=== PATIENT | male | born 1945 | race Asian ===

== ENCOUNTER 2016-06-14 09:58 | Inpatient (IN) | payer OTHER ==
[~2016-06-14] VITALS: Ht 170.2 cm; Wt 69.9 kg
[~2016-06-14 09:58] MED LIST: ADVAIR DISKUS 11 DSK IH; ASPIRIN81 M1 PO; ATORVASTATIN CA20 MG PO; HYDROCHLOROTHIA25 MG PO; LOSARTAN POTASS25 MG PO; MEDROL DOSEPAK4 MG PO; PHENERGAN25 MG PO; PROAIR HFA0.09 MG/Ac IH; SINGULAIR10 MG PO; TENORMIN100 MG PO; TENORMIN50 M1 PO; ZESTRIL20 MG PO
[2016-06-14 10:03] VITALS: BP 157/68
[2016-06-14] MEDS ORDERED: SINGULAIR10 MG PO (10:08)
--- NOTE | 2016-06-14 10:21 | NUR ---
REPORT TO DR. HANSEN RESULT OF URINE DIPSTICK
--- NOTE | 2016-06-14 10:23 | NUR ---
PATIENT PRESENTS TO ED WITH 71/M BIB HERE FOR ABNORMAL LABS SODIUM 121, RECEIVED CALL FROM PMD THIS AM SENT HERE. HX COPD, HTN. DENIES N/V/D; SKIN IS PINK/WARM/DRY; AAOX4 WITH EVEN AND STEADY GAIT; LUNGS CLEAR BL; HR EVEN AND REGULAR; PT DENIES ANY FEVER, CP, SOB, OR COUGH AT THIS TIME; PATIENT STATES PAIN OF 0/10 AT THIS TIME; VSS; PATIENT POSITIONED FOR COMFORT; HOB ELEVATED; BEDRAILS UP X2; BED DOWN. ER MD MADE AWARE OF PT STATUS.
--- NOTE | 2016-06-14 10:24 | NUR ---
Patient being evaluated by physician at bedside.
[2016-06-14] MEDS ORDERED: NACL 0.9% 1,000 ML IV ONE (10:40)
[2016-06-14] MEDS ORDERED: NACL 0.9% 1,000 ML IV SCH (12:03)
[2016-06-14] MEDS ORDERED: ONDANSETRON 4 MG/2 ML VIAL IVP PRN (12:05)
[2016-06-14] MEDS ORDERED: LORazepam 2 MG/ML VIAL IVP PRN (12:05)
[2016-06-14] MEDS ORDERED: HYDROcodone/APAP 5/325 MG 1 TAB TAB PO PRN (12:05)
[2016-06-14] MEDS ORDERED: FUROSEMIDE 40 MG/4 ML VIAL IVP SCH (12:18)
--- NOTE | 2016-06-14 12:30 | NUR ---
Patient will be admitted to care of DR. GONZALES. [facility] Will go to [facility]B Belongings list completed. Report to TANNA RN
--- NOTE | 2016-06-14 12:45 | NUR ---
PATIENT ADMITTED FROM ER , COMING VIA WC . PATIENT AWAKE, ALERT ,ORIENTED (T/4) . DENIES PAIN AT THIS TIME , NO SOB NOTED. WITH IV FLUIDS INFUSING WELL. SKIN INTACT . PATIENT CONTINENT B/B , BRP . UNIT ORIENTATION DONE. WILL CONTINUE MONITORING.
[2016-06-14] MEDS ORDERED: NON-FORMULARY ITEM (Albuterol Sulfate Hfa* (Proair Hfa*) 2 PUFF) IH SCH (13:50)
--- NOTE | 2016-06-14 14:00 | NUR ---
RAFIA/SEQ DEVISES APPLIED .
[2016-06-14] MEDS ORDERED: ALBUTEROL 0.083% 2.5 MG/3 ML NEBU INH PRN (14:35)
[2016-06-14 16:00] VITALS: BP 141/68
--- NOTE | 2016-06-14 19:29 | NUR ---
REPORT GIVEN AT BEDSIDE TO GISELLA TAYLOR FOR CONTINUITY OF CARE. PATIENT IN STABLE CONDITION.
--- NOTE | 2016-06-14 19:30 | NUR ---
RECEIVED PT AWAKE ON BED, DENIES ANY PAIN, NO SOB NOTED, VITAL SIGNS STABLE, IVF INFUSING WELL, POC DISCUSSED, CALL LIGHT WITHIN REACH.
[2016-06-14 20:00] VITALS: BP 146/67
--- NOTE | 2016-06-14 22:00 | NUR ---
PT AMBULATORY TO BR WITH STEADY GAIT, VOIDING FREELY, MONITORED CLOSELY.
[2016-06-15] VITALS (7 sets, daily range): BP systolic 129–160; BP diastolic 61–79
--- NOTE | 2016-06-15 | NUR ---
PT AWAKE, VITAL SIGNS STABLE, SB IN TELE, ASYMPTOMATIC, DENIES ANY PAIN, CONTINUE TO MONITOR CLOSELY.
--- NOTE | 2016-06-15 02:15 | NUR ---
PT REQUESTING IF HE CAN GET SOME ATIVAN, WITH ORDER FOR ATIVAN IVP, GIVEN PRN WITH 1 MG PER PT REQUEST SINCE PER PT 2MG IS TOO STRONG FOR HIM, MONITORED CLOSELY.
--- NOTE | 2016-06-15 04:00 | NUR ---
SLEEPING, EASILY AROUSABLE, VITAL SIGNS STABLE, NO DISTRESS NOTED, MONITORED CLOSELY.
[2016-06-15] MEDS: PANTOPRAZOLE 40 MG TABEC PO SCH (06:06)
--- NOTE | 2016-06-15 06:17 | NUR ---
PT SLEEPING, EASILY AROUSABLE, DENIES ANY PAIN, DUE PO MEDICATION TAKEN, IVF INFUSING WELL, MONITORED CLOSELY.
[2016-06-15] MEDS ORDERED: MAGNESIUM OXIDE 400 MG TAB PO SCH (07:00)
--- NOTE | 2016-06-15 07:15 | NUR ---
PT AWAKE, NO DISTRESS NOTED, REPORT GIVEN TO ADA RN FOR CONTINUITY OF CARE.
[2016-06-15] MEDS ORDERED: ATORVASTATIN 20 MG TAB PO SCH ×3 (09:00→21:00)
[2016-06-15] MEDS ORDERED: MAG SULF 2000 MG/WATER PREMIX 50 ML IV SCH (09:00)
[2016-06-15] MEDS ORDERED: LOSARTAN 25 MG TAB PO SCH ×2 (09:00)
[2016-06-15] MEDS: ATENOLOL 50 MG TAB PO SCH (09:00)
[2016-06-15] MEDS ORDERED: ATENOLOL 50 MG TAB PO SCH (09:00)
--- NOTE | 2016-06-15 11:00 | NUR ---
PATIENT HAS BEEN SCREENED AND CATEGORIZED MODERATE NUTRITION RISK. PATIENT WILL BE SEEN WITHIN 3-5 DAYS OF ADMISSION. 06/17/16-06/19/[address]
[2016-06-15] MEDS ORDERED: FUROSEMIDE 40 MG/4 ML VIAL IVP SCH (13:17)
[2016-06-15] MEDS: ASPIRIN 81 MG TAB.CHEW PO SCH (17:00)
[2016-06-15] MEDS: MONTELUKAST SODIUM 10 MG TAB PO SCH (17:01)
[2016-06-15] MEDS: LOSARTAN 25 MG TAB PO SCH ×2 (17:01→21:00)
[2016-06-15] MEDS: NACL 0.9% 1,000 ML IV SCH ×2 (17:36→20:25)
--- NOTE | 2016-06-15 19:20 | NUR ---
REPORT GIVEN AT BEDSIDE TO GISELLA BAPTISTE FOR CONTINUITY OF CARE .
--- NOTE | 2016-06-15 19:27 | NUR ---
RECEIVED FROM AM RN IN BED AWAKE AND ALERT. NO SOB. CALL LIGHT WITH IN REACH. ABLE TO VERBALIZE NEEDS WELL. NO SOB. CARE PLANS DISCUSSED WITH PTS. TELEMETRY MONITORING.
--- NOTE | 2016-06-15 21:03 | NUR ---
REFUSED TO TAKE B/P MEDICATION RT TOOK IT AT 1700. AWAKE AND ALERT. ORIENTED X 4. ROM X 4. Addendum: 06/15/16 at 2108 by Emile Kent RN CHARTING ABOVE BY EMILE KENT RN. MEDICATION FOR 2100 GIVEN BY EMILE KENT RN.
--- NOTE | 2016-06-15 23:30 | NUR ---
PT. SLEEPING. NO SOB. WILL MONITOR. TELEMETRY MONITORING. CALL LIGHT WITH IN REACH.
[2016-06-16 00:44] VITALS: BP 134/65
--- NOTE | 2016-06-16 01:23 | NUR ---
SEEN PT. AMBULATE TO RESTROOM WITHOUT ASSIST. TELEMETRY MONITORING. ROM X 4. CLEAR SPEECH. CALL LIGHT WITH IN REACH.
[2016-06-16 04:00] VITALS: BP 149/76
[2016-06-16] MEDS: PANTOPRAZOLE 40 MG TABEC PO SCH (06:37)
--- NOTE | 2016-06-16 07:15 | NUR ---
RECEIVED PATIENT REPORT. PATIENT AWAKE, ALERT, ORIENTED AND AMBULATORY. NO S/S OF DISTRESS NOTED. PATIENT DENIES PAIN AT THIS TIME. IV TO THE RIGHT AC INTACT WITH IVF INFUSING WELL. PATIENT ON TELE MONITORING. BED LOWERED WITH CALL LIGHT WITHIN REACH. WILL CONTINUE TO MONITOR
--- NOTE | 2016-06-16 07:29 | NUR ---
ENDORSED TO THE NEXT RN FOR CONTINUITY OF CARE. AWAKE AND ALERT. NO SOB. VERBALIZES WELL. ORIENTED X 4. ROM X 4. NO PAIN COMPLAINTS THIS SHIFT. USES CALL LIGHT FOR HELP.
[2016-06-16 08:00] VITALS: BP 149/81
[2016-06-16] MEDS: NACL 0.9% 1,000 ML IV SCH (08:55)
[2016-06-16] MEDS: MONTELUKAST SODIUM 10 MG TAB PO SCH (09:11)
[2016-06-16] MEDS: LOSARTAN 25 MG TAB PO SCH (09:11)
[2016-06-16] MEDS: ATENOLOL 50 MG TAB PO SCH (09:11)
[2016-06-16] MEDS: ASPIRIN 81 MG TAB.CHEW PO SCH (09:11)
--- NOTE | 2016-06-16 09:30 | NUR ---
ADMINISTERED DUE MEDS. PATIENT TOLERATED WELL
[2016-06-16] MEDS ORDERED: LOSARTAN POTASS50 MG PO ×2 (10:50→11:15)
[2016-06-16] MEDS ORDERED: TENORMIN50 M1 PO (10:50)
--- NOTE | 2016-06-16 11:00 | NUR ---
PATIENT CALMLY RESTING IN BED. NO S/S OF DISTRESS NOTED
[2016-06-16 12:00] VITALS: BP 147/71
[2016-06-16] MEDS ORDERED: MAGNESIUM OXIDE 400 MG TAB PO SCH (12:00)
--- NOTE | 2016-06-16 13:55 | NUR ---
PATIENT DISCHARGED TO HOME. DISCHARGE INSTRUCTIONS AND DISCHARGE PRESCRIPTIONS GIVEN. PATIENT VERBALIZED UNDERSTANDING. IV LINE DISCONTINUED. TELE LEADS TAKEN OFF. PATIENT SIGNED ALL HIS DISCHARGE PAPERS. PATIENT LEFT WITH ALL HIS BELONGINGS AND DISCHARGE PAPERS. PATIENT LEFT IN STABLE CONDITION
== END 2016-06-16 13:55 | disposition home or self-care (01) | DRG 641 ==
LOC: MED 09:58 → UNDOADMIN 12:03 → MTU 12:03 → OBSVTOIN 06-15 12:54
PROVIDERS: ADMIT Family Medicine; ATTEND Family Medicine
DX: E87.1 Hypo-osmolality and hyponatremia (principal); I42.2 Other hypertrophic cardiomyopathy; J44.9 Chronic obstructive pulmonary disease, unspecified; I11.9 Hypertensive heart disease without heart failure; E83.42 Hypomagnesemia; K21.9 Gastro-esophageal reflux disease without esophagitis; Z87.891 Personal history of nicotine dependence; Z83.3 Family history of diabetes mellitus; Z80.8 Family history of malignant neoplasm of other organs or systems

== ENCOUNTER 2016-08-02 07:15 | Outpatient (CLI) | payer OTHER ==
[~2016-08-02 07:15] MED LIST changes: +LOSARTAN POTASS50 MG PO
== END 2016-08-02 19:33 | disposition home or self-care (01) ==
LOC: MLB 07:15
PROVIDERS: ATTEND Family Medicine
DX: E87.0 Hyperosmolality and hypernatremia (principal)

== ENCOUNTER 2016-11-08 07:30 | Outpatient (CLI) | payer OTHER ==
[~2016-11-08 07:30] MED LIST changes: -ADVAIR DISKUS 11 DSK IH; +ALBU-136 IH; +ASPI81CT89 PO; -ASPIRIN81 M1 PO; +ATEN50TA8 PO; +ATOR20TA40 PO; -ATORVASTATIN CA20 MG PO; +FLUT1DSK IH; -HYDROCHLOROTHIA25 MG PO; +LOSA50TA39 PO; -LOSARTAN POTASS25 MG PO; -LOSARTAN POTASS50 MG PO; -MEDROL DOSEPAK4 MG PO; +MONT10TA35 PO; +PHE25S PO; -PHENERGAN25 MG PO; -PROAIR HFA0.09 MG/Ac IH; -SINGULAIR10 MG PO; -TENORMIN100 MG PO; -TENORMIN50 M1 PO; -ZESTRIL20 MG PO
== END 2016-11-08 20:15 | disposition home or self-care (01) ==
LOC: MLB 07:30
PROVIDERS: ATTEND Family Medicine
DX: E78.5 Hyperlipidemia, unspecified (principal)
CPT/HCPCS: 36415

== ENCOUNTER 2017-03-05 08:09 | Outpatient (CLI) | payer OTHER ==
[2017-03-05 08:34] LABS: BASOPHILS # (AUTO) 0.3 K/uL (0.00-0.22); BASOPHILS % (AUTO) 3.8 % (0.0-2.0); EOSINOPHILS # (AUTO) 0.5 K/uL (0-0.4); EOSINOPHILS % (AUTO) 6.6 % (0.0-4.0); HEMATOCRIT 41.4 % (36-52); HEMOGLOBIN 13.6 g/dL (12.0-18.0); LYMPHOCYTES # (AUTO) 2.7 K/uL (2.0-11.5); LYMPHOCYTES % (AUTO) 34.7 % (20.5-51.1); MEAN CORPUSCULAR HEMOGLOBIN 28 pg (27-31); MEAN CORPUSCULAR HGB CONC 33 g/dL (33-37); MEAN CORPUSCULAR VOLUME 84 fL (80-94); MONOCYTES # (AUTO) 0.5 K/uL (0.8-1.0); MONOCYTES % (AUTO) 6.1 % (1.7-9.3); NEUTROPHILS # (AUTO) 3.7 K/uL (1.8-7.7); NEUTROPHILS % (AUTO) 48.8 % (42.2-75.2); PLATELET COUNT (AUTO) 417 K/uL (140-450); RED BLOOD CELL COUNT(AUTO) 4.91 MIL/uL (4.20-6.10); RED CELL DISTRIBUTION WIDTH 12.8 % (11.6-13.7); WHITE BLOOD COUNT (AUTO) 7.7 K/uL (4.8-10.8)
[2017-03-05 09:04] LABS: ALBUMIN 4.3 g/dL (3.4-5.0); ANION GAP 13.3 (8-16); CARBON DIOXIDE 28.9 mmol/L (21-32); CREATININE 1.1 mg/dL (0.7-1.3); POTASSIUM 4.2 mmol/L (3.5-5.1); TOTAL BILIRUBIN 0.4 mg/dL (0.0-1.0)
== END 2017-03-05 22:12 | disposition home or self-care (01) ==
LOC: MLB 08:09
PROVIDERS: ATTEND Family Medicine
DX: Z00.00 Encounter for general adult medical examination without abnormal findings (principal)
CPT/HCPCS: 36415; 80053; 85025

== ENCOUNTER 2017-04-02 07:52 | Outpatient (CLI) | payer OTHER ==
[2017-04-02 09:13] LABS: CHOL/HDL RATIO 2.8 (1-4.5)
== END 2017-04-02 17:32 | disposition home or self-care (01) ==
LOC: MLB 07:52
PROVIDERS: ATTEND Family Medicine
DX: E78.5 Hyperlipidemia, unspecified (principal)
CPT/HCPCS: 36415

== ENCOUNTER 2017-05-12 10:26 | Emergency (ER) | payer OTHER ==
[~2017-05-12] VITALS: Ht 167.6 cm; Wt 72.7 kg
[2017-05-12 10:31] VITALS: BP 142/64
--- NOTE | 2017-05-12 10:34 | NUR ---
Patient ambulated to bed 03.
--- NOTE | 2017-05-12 10:39 | NUR ---
Received ALOX4 with pt c/o sore throat and instructed by his to come in and get abx and tx pt did not want to change into hospital gown at this time.
[2017-05-12 10:58] VITALS: BP 122/72
--- NOTE | 2017-05-12 10:59 | NUR ---
Patient discharged with v/s stable. Written and verbal after care instructions given and explained. Patient alert, oriented and verbalized understanding of instructions. Ambulatory with steady gait. All questions addressed prior to discharge. ID band removed. Patient advised to follow up with PMD. Rx of Z-pack and Phenergan given. Patient educated on indication of medication including possible reaction and side effects. Opportunity to ask questions provided and answered.
== END 2017-05-12 10:59 | disposition home or self-care (01) ==
LOC: MED 10:26 → EEVIPCON 10:26 → MED 10:59
DX: J06.9 Acute upper respiratory infection, unspecified (principal); I10 Essential (primary) hypertension; Z79.899 Other long term (current) drug therapy; Z79.82 Long term (current) use of aspirin
CPT/HCPCS: 99283

== ENCOUNTER 2017-06-09 16:45 | Inpatient (IN) | payer OTHER ==
[~2017-06-09] VITALS: Ht 170.2 cm; Wt 73.5 kg
[2017-06-09 16:57] VITALS: BP 158/87
[2017-06-09] MEDS ORDERED: AMLO10TA PO (17:04)
[2017-06-09] MEDS ORDERED: ATOR40TA PO (17:04)
[2017-06-09] MEDS ORDERED: METO25TE2 PO (17:04)
[2017-06-09] MEDS ORDERED: MELA5TAB5 PO (17:04)
[2017-06-09] MEDS ORDERED: LOSA50TA39 PO (17:04)
[2017-06-09] MEDS ORDERED: OMEP20TC10 PO (17:04)
[2017-06-09] MEDS ORDERED: LORA-476 PO (17:04)
[2017-06-09] MEDS ORDERED: APR10 PO (17:04)
--- NOTE | 2017-06-09 17:45 | NUR ---
Patient to OF4. RN evaluating patient.
--- NOTE | 2017-06-09 17:54 | NUR ---
PT STATES "I THINK MY BRAIN IS BEING AFFECTED. I KEEP THINKING OF SOMETHING AND I KEEP THINKING AND THINKING OF IT AND CANNOT CHANGE IT." SINCE YESTERDAY DENIES HEARING VOICES OR SEEING THINGS; DENIES HURTING SELF OR OTHERS HX HTN, HIGH CHOLESTEROL, ANXIETY; DENIES N/V/D; SKIN IS PINK/WARM/DRY; AAOX4 WITH EVEN AND STEADY GAIT; LUNGS CLEAR BL; HR EVEN AND REGULAR; PT DENIES ANY FEVER, CP, SOB, OR COUGH AT THIS TIME; PATIENT STATES PAIN OF 0/10 AT THIS TIME; VSS; PATIENT POSITIONED FOR COMFORT; ER MD MADE AWARE OF PT STATUS.
--- NOTE | 2017-06-09 18:25 | NUR ---
ASSUMED CARE OF PT FROM OF4. PT AA&OX4 AT THIS TIME. PT STATES "FEELING ANXIOUS" SINCE YESTERDAY BECAUSE INCREASE IN BP; PT STATES " I COULD FEEL MY BLOOD PRESSURE RISING YESTERDAY"; PER , PT OUT OF ATIVAN AT THIS TIME; PT C/O NAUSEA, BUT STATES NO VOMITING OR DIARRHEA AT THIS TIME;ABDOMEN SOFT, NON-TENDER, ACTIVE BOWEL SOUNDS X 4 QUADRANTS; PT C/O CHEST PAIN EARLIER, BUT STATES " I DON'T HAVE CHEST PAIN ANYMORE, BUT HAD IT EARLIER"; BL LUNG SOUNDS CLEAR, RR EVEN/UNLABORED AT THIS TIME; SKIN IS WARM/DRY/INTACT; PT STATES "I'M STARTING TO FEEL MY RT FOOT GO NUMB", BUT NO LOSS OF SENSATION TO RT FOOT AT THIS TIME; RT CAP REFILL < 3 SECONDS, RT PEDAL PULSE PALPABLE, NO LOSS OF ROM TO RT FOOT AT THIS TIME. PT RESTING IN BED WITH HOB ELEVATED AND IN LOWEST POSITION; POSITIONED FOR COMFORT; ER MD MADE AWARE OF STATUS. WILL CONTINUE TO MONITOR.
--- NOTE | 2017-06-09 18:37 | NUR ---
ER MD DR. FERNÁNDEZ EVALUATING PT AT BEDSIDE.
[2017-06-09] MEDS ORDERED: ASPIRIN 81 MG TAB.CHEW PO ONE (18:40)
[2017-06-09] MEDS ORDERED: LORazepam 1 MG TAB PO ONE (18:45)
--- NOTE | 2017-06-09 18:52 | NUR ---
blood bank laboratory technician at bedside.
--- NOTE | 2017-06-09 18:53 | NUR ---
LAB AT BEDSIDE.
[2017-06-09 19:04] LABS: HEMATOCRIT 38.3 % (36-52); HEMOGLOBIN 12.7 g/dL (12.0-18.0); MEAN CORPUSCULAR HEMOGLOBIN 28 pg (27-31); MEAN CORPUSCULAR HGB CONC 33 g/dL (33-37); MEAN CORPUSCULAR VOLUME 84 fL (80-94); PLATELET COUNT (AUTO) 358 K/uL (140-450); RED BLOOD CELL COUNT(AUTO) 4.59 MIL/uL (4.20-6.10); RED CELL DISTRIBUTION WIDTH 12.5 % (11.6-13.7); WHITE BLOOD COUNT (AUTO) 9.4 K/uL (4.8-10.8)
--- NOTE | 2017-06-09 19:13 | NUR ---
PT IN BED, POSTIONED FOR COMFORT, WILL CONTINUE TO MONITOR.
[2017-06-09 19:15] LABS: ANION GAP 16.1 (8-16); CARBON DIOXIDE 23.3 mmol/L (21-32); CREATININE 0.9 mg/dL (0.7-1.3); POTASSIUM 3.4 mmol/L (3.5-5.1)
--- NOTE | 2017-06-09 19:15 | NUR ---
Pt report given to GISELLA SHERIFF. Transfer of care at this time.
--- NOTE | 2017-06-09 19:15 | NUR ---
Darcy de souza in ED - 06/09/17 at 1915 by TRENA Pt report given to []. Transfer of care at this time.
[2017-06-09 19:20] LABS: ALBUMIN 4.2 g/dL (3.4-5.0); TOTAL BILIRUBIN 0.6 mg/dL (0.0-1.0)
[2017-06-09] MEDS ORDERED: NACL 0.9% 1,000 ML IV ONE (19:25)
[2017-06-09 19:33] LABS: LYMPHOCYTES % (MANUAL) 35 % (20-46); MONOCYTES % (MANUAL) 8 % (5-12)
[2017-06-09] MEDS ORDERED: MORPHINE SULFATE 2 MG/ML SYR IVP ONE (19:45)
[2017-06-09] MEDS ORDERED: HYDROcodone/APAP 7.5/325 MG 1 TAB PO PRN (20:00)
[2017-06-09] MEDS ORDERED: DOCUSATE SODIUM 100 MG GELCAP PO PRN (20:00)
[2017-06-09] MEDS ORDERED: ACETAMINOPHEN 325 MG TAB PO PRN (20:00)
[2017-06-09] MEDS ORDERED: ONDANSETRON 4 MG/2 ML VIAL IM/IVP PRN (20:00)
--- NOTE | 2017-06-09 20:00 | NUR ---
RECEIVED FROM ER PER THEODORE AWAKE AND ALERT. NO SOB. PT. ACCOMPANIED BY . TELEMETRY MONITORING AND DX. OF HYPONATREMIA AND ANXIETY. CALL LIGHT WITH IN REACH AND PT. ORIENTED TO RAPID RESPONSE , ROOM AND CALL LIGHT USE. CARE PLANS FOR THE NIGHT DISCUSSED WITH HIM AND . ENCOURAGED TO CALL FOR ANY HELP HE MAY NEED.
[2017-06-09] MEDS: NACL 0.9% 1,000 ML IV SCH (20:04)
--- NOTE | 2017-06-09 20:19 | NUR ---
DR. Kyra BREEN EVALUATING PATIENT AT BEDSIDE
--- NOTE | 2017-06-09 20:54 | NUR ---
Patient will be admitted to care of [facility]. Admited to tele. Will go to room 125-b. Belongings list completed. Report to césar.
[2017-06-09 20:55] VITALS: BP 149/70
[2017-06-09] MEDS: SODIUM CHLORIDE 1 GM TAB PO SCH (21:00)
[2017-06-09] MEDS ORDERED: METO25TA PO (21:08)
[2017-06-09] MEDS: hydrALAZINE 10 MG TAB PO SCH (21:10)
[2017-06-09] MEDS: METOPROLOL 25 MG TAB PO SCH (21:10)
[2017-06-09 21:13] LABS: PROTHROMBIN TIME 10.4 secs (10.8-13.4)
[2017-06-09] MEDS ORDERED: NITROGLYCERIN 0.4 MG TAB SL PRN (21:15)
[2017-06-09 21:20] LABS: CHOL/HDL RATIO 2.9 (1-4.5); FREE T4 (FREE THYROXINE) 1.13 ng/dL (0.76-1.46); MAGNESIUM 1.8 mg/dL (1.8-2.4); PHOSPHORUS 3.5 mg/dL (2.5-4.9); THYROID STIMULATING HORMONE 0.42 uIU/mL (0.34-3.74)
[2017-06-09] MEDS ORDERED: MECLIZINE 25 MG TAB PO PRN (21:20)
[2017-06-09] MEDS ORDERED: ZOLPIDEM 5 MG TAB PO PRN (21:40)
[2017-06-09] MEDS ORDERED: LORazepam 1 MG TAB PO PRN (21:40)
--- NOTE | 2017-06-09 22:04 | NUR ---
PT. WHEELED OUT TO RADIOLOGY DEPT. FOR CT SCAN HEAD. AWAKE AND ALERT. ORIENTED X 4. CLEAR SPEECH. NO SOB.
[2017-06-09] MEDS ORDERED: POTASSIUM CHLORIDE 10 MEQ TABER PO SCH (22:15)
[2017-06-09] MEDS ORDERED: METOPROLOL 25 MG TAB PO SCH (22:30)
[2017-06-09] MEDS ORDERED: hydrALAZINE 10 MG TAB PO SCH (22:30)
[2017-06-09] MEDS ORDERED: PNEUMOCOCCAL VACCINE 23 MCG/0.5 ML VIAL IMVAC SCH (22:35)
[2017-06-09] MEDS ORDERED: SODIUM CHLORIDE 1 GM TAB PO SCH (22:40)
[2017-06-10] VITALS (19 sets, daily range): BP systolic 129–158; BP diastolic 62–79
--- NOTE | 2017-06-10 00:39 | NUR ---
US CAROTID BILATERAL DONE. PT. NO COMPLAINTS OF ANY CHEST PAIN DONE. PROVIDED WITH SANDWICH REQUESTED RT "I AM HUNGRY" . CALL LIGHT WITH IN REACH AT ALL TIMES.
--- NOTE | 2017-06-10 06:41 | NUR ---
SLEPT WELL THIS SHIFT. NO CHEST PAIN COMPLAINT DONE WITH MY SHIFT. CALL LIGHT WITH IN REACH. A/O X 4. ROM X 4. BILATERAL SEQUENTIALS IN PLACE.
[2017-06-10 07:05] LABS: HEMATOCRIT 39.9 % (36-52); HEMOGLOBIN 13.5 g/dL (12.0-18.0); MEAN CORPUSCULAR HEMOGLOBIN 28 pg (27-31); MEAN CORPUSCULAR HGB CONC 34 g/dL (33-37); MEAN CORPUSCULAR VOLUME 82 fL (80-94); PLATELET COUNT (AUTO) 366 K/uL (140-450); RED BLOOD CELL COUNT(AUTO) 4.87 MIL/uL (4.20-6.10); RED CELL DISTRIBUTION WIDTH 12.5 % (11.6-13.7)
--- NOTE | 2017-06-10 07:20 | NUR ---
RECEIVED REPORT FROM GLASS ETCHER NURSE. PATIENT SITTING IN BED WATCHING TV. NO DISTRESS NOTED. DENIES ANY PAIN. RESPIRATIONS EVEN, UNLABORED, ON ROOM AIR. AAOX4, CALM, COOPERATIVE, SKIN COLOR APPROPRIATE TO ETHNICITY, WARM TO TOUCH. LUNGS CTA ON ALL LOBES. IV SITE INTACT, PATENT AND INFUSING. AMBULATORY TO BATHROOM AND BACK WITH STEADY GAIT. ABDOMEN SOFT, NON-DISTENDED. REVIEWED PLAN OF CARE WITH PATIENT. PATIENT VERBALIZED UNDERSTANDING. SAFETY MEASURES IN PLACE, CALL LIGHT WITHIN REACH. WILL CONTINUE TO MONITOR.
[2017-06-10 07:30] LABS: ANION GAP 16.2 (8-16); CARBON DIOXIDE 22.8 mmol/L (21-32); CREATININE 0.8 mg/dL (0.7-1.3)
[2017-06-10 08:59] LABS: EOSINOPHILS % (MANUAL) 3 % (0-4); LYMPHOCYTES % (MANUAL) 44 % (20-46); MONOCYTES % (MANUAL) 5 % (5-12)
[2017-06-10] MEDS ORDERED: ESCITALOPRAM 20 MG TAB PO SCH (09:00)
--- NOTE | 2017-06-10 09:02 | NUR ---
PATIENT HAS BEEN SCREENED AND CATEGORIZED MODERATE NUTRITION RISK. PT WILL BE SEEN WITHIN 3-5 DAYS OF ADMISSION. 06/11/17-06/13/[address]
[2017-06-10] MEDS: PANTOPRAZOLE 40 MG TABEC PO SCH (09:36)
[2017-06-10] MEDS: ATORVASTATIN 20 MG TAB PO SCH (09:36)
[2017-06-10] MEDS: METOPROLOL 25 MG TAB PO SCH ×2 (09:36→21:01)
[2017-06-10] MEDS: LOSARTAN 50 MG TAB PO SCH ×2 (09:37→21:01)
[2017-06-10] MEDS: amLODIPine 5 MG TAB PO SCH (09:37)
[2017-06-10] MEDS: ECOTRIN 81 MG TABEC PO SCH (09:37)
[2017-06-10] MEDS: SERTRALINE 50 MG TAB PO SCH (09:38)
[2017-06-10] MEDS: hydrALAZINE 10 MG TAB PO SCH ×4 (09:38→21:01)
[2017-06-10] MEDS: SODIUM CHLORIDE 1 GM TAB PO SCH (09:38)
[2017-06-10] MEDS: NACL 0.9% 1,000 ML IV SCH ×3 (09:44→23:23)
--- NOTE | 2017-06-10 09:46 | NUR ---
DR. ROJO AT BEDSIDE REVIEWING PLAN OF CARE WITH PATIENT. NO DISTRESS NOTED. DENIES ANY PAIN. SCHEDULED MEDICATIONS DUE GIVEN. SAFETY MEASURES IN PLACE, CALL LIGHT WITHIN REACH. WILL CONTINUE TO MONITOR.
--- NOTE | 2017-06-10 11:30 | NUR ---
PATIENT SITTING IN BED WATCHING TV. NO DISTRESS NOTED. DENIES ANY PAIN. SAFETY MEASURES IN PLACE, CALL LIGHT WITHIN REACH. WILL CONTINUE TO MONITOR.
--- NOTE | 2017-06-10 13:40 | NUR ---
PATIENT SITTING IN BED WATCHING TV. NO DISTRESS NOTED. DENIES ANY PAIN. CONDITION UNCHANGED. SCHEDULED BP MEDICATION WITHHELD DUE TO DECREASED BP. SAFETY MEASURES IN PLACE, CALL LIGHT WITHIN REACH. WILL CONTINUE TO MONITOR.
--- NOTE | 2017-06-10 17:08 | NUR ---
PATIENT SITTING IN BED WATCHING TV. AT BEDSIDE. NO DISTRESS NOTED. DENIES ANY PAIN. SCHEDULED MEDICATIONS DUE GIVEN. SAFETY MEASURES IN PLACE, CALL LIGHT WITHIN REACH. WILL CONTINUE TO MONITOR.
--- NOTE | 2017-06-10 18:35 | NUR ---
PATIENT LYING DOWN IN BED SLEEPING, AROUSABLE BY VOICE. NO DISTRESS NOTED. DENIES ANY PAIN. SAFETY MEASURES IN PLACE, CALL LIGHT WITHIN REACH. WILL CONTINUE TO MONITOR.
--- NOTE | 2017-06-10 19:17 | NUR ---
GAVE REPORT TO MANAGER PHARMACY NURSE FOR CONTINUITY OF CARE. PATIENT IN STABLE CONDITION.
--- NOTE | 2017-06-10 19:35 | NUR ---
RECEIVED PT IN STABLE CONDITION FROM AM NURSE. AWAKE,ALERT AND ORIENTED X4. ON TELE MONITOR. NO C/O ANY DISCOMFORT NOR PAIN NOTED AT THIS TIME. PT STILL EATING DINNER. WITH IVF INFUSING WELL ON THE RT HAND #20. CLEAR AND PATENT. PLAN OF CARE DISCUSSED AND VERBALIZED UNDERSTANDING. BED ON LOW POSITION. CALL LIGHT PLACED WITHIN EASY REACH. DR. SINGH CAME AND SEEN PT. WILL CONTINUE TO MONITOR.
--- NOTE | 2017-06-10 21:01 | NUR ---
PT TOOK ALL NIGHT MEDS . TOLERATED WELL.
[2017-06-10] MEDS ORDERED: SODIUM CHLORIDE 1 GM TAB PO SCH (21:10)
--- NOTE | 2017-06-10 23:18 | NUR ---
PT C/O INSOMNIA. AMBIEN 5 MG PO GIVEN ORDERED. WILL CONTINUE TO MONITOR.
--- NOTE | 2017-06-11 01:00 | NUR ---
MADE ROUNDS. ASLEEP. WITH NO S/S OF ANY DISCOMFORT NOR PAIN NOTED.
--- NOTE | 2017-06-11 02:00 | NUR ---
MAD ROUNDS. PT IS ASLEEP. NO S/S OF ANY DISCOMFORT NOTED.
[2017-06-11 03:54] VITALS: BP 146/67
[2017-06-11 03:55] VITALS: BP 142/74
[2017-06-11 03:56] VITALS: BP 145/72
[2017-06-11 06:16] LABS: T4 (THYROXINE) 8.4 ug/dL (4.5-12.0)
[2017-06-11 06:22] LABS: BASOPHILS # (AUTO) 0.3 K/uL (0.00-0.22); BASOPHILS % (AUTO) 3.3 % (0.0-2.0); EOSINOPHILS # (AUTO) 0.2 K/uL (0-0.4); EOSINOPHILS % (AUTO) 1.8 % (0.0-4.0); HEMATOCRIT 40.1 % (36-52); HEMOGLOBIN 13.5 g/dL (12.0-18.0); LYMPHOCYTES # (AUTO) 2.8 K/uL (2.0-11.5); LYMPHOCYTES % (AUTO) 26.4 % (20.5-51.1); MEAN CORPUSCULAR HEMOGLOBIN 28 pg (27-31); MEAN CORPUSCULAR HGB CONC 34 g/dL (33-37); MEAN CORPUSCULAR VOLUME 84 fL (80-94); MONOCYTES # (AUTO) 1.2 K/uL (0.8-1.0); MONOCYTES % (AUTO) 11.9 % (1.7-9.3); NEUTROPHILS % (AUTO) 56.6 % (42.2-75.2); PLATELET COUNT (AUTO) 379 K/uL (140-450); RED CELL DISTRIBUTION WIDTH 12.5 % (11.6-13.7); WHITE BLOOD COUNT (AUTO) 10.5 K/uL (4.8-10.8)
--- NOTE | 2017-06-11 07:00 | NUR ---
NATI , JUST CALLED AND SAID NOT TO GIVE THE PNA VACCINE ANYMORE . HE WILL JUST GET IT [facility] . WILL ENDORSE TO AM NURSE.
--- NOTE | 2017-06-11 07:10 | NUR ---
BEDSIDE REPORT RECEIVED FROM NIGHTSHIFT NURSE AT BEDSIDE. PATIENT IS AWAKE AT THIS TIME. PATIENT DOES NOT COMPLAIN OF CHEST PAIN. PATIENT IS A&OX4. PATIENT IS IN STABLE CONDITION. CALL LIGHT IS WITHIN REACH. INSTRUCTED PATIENT TO CALL IF HE NEEDS HELP WITH ANYTHING.
--- NOTE | 2017-06-11 07:15 | NUR ---
ENDORSED PT IN STABLE CONDITION TO AM NURSE.
[2017-06-11 08:26] VITALS: BP 131/76
[2017-06-11 08:55] LABS: ANION GAP 13.9 (8-16); CARBON DIOXIDE 23.9 mmol/L (21-32); CREATININE 0.8 mg/dL (0.7-1.3); POTASSIUM 3.8 mmol/L (3.5-5.1)
[2017-06-11] MEDS ORDERED: ATI.5 PO (09:04)
[2017-06-11] MEDS ORDERED: SERT50TA PO ×2 (09:04→13:16)
[2017-06-11] MEDS ORDERED: ASPI81CT89 PO ×2 (09:07→13:27)
[2017-06-11] MEDS ORDERED: LORazepam 1 MG TAB PO SCH (09:27)
--- NOTE | 2017-06-11 09:50 | NUR ---
PATIENT IS AMBULATING AROUND THE UNIT. PATIENT SHOWS NO SIGNS OF RESPIRATORY DISTRESS OR FATIGUE. PATIENT OXYGEN SATURATION IS 95% AFTER WALKING.
[2017-06-11] MEDS: SERTRALINE 50 MG TAB PO SCH (10:06)
[2017-06-11] MEDS: LOSARTAN 50 MG TAB PO SCH (10:07)
[2017-06-11] MEDS: hydrALAZINE 10 MG TAB PO SCH ×2 (10:08→13:00)
[2017-06-11] MEDS: PANTOPRAZOLE 40 MG TABEC PO SCH (10:08)
[2017-06-11] MEDS: METOPROLOL 25 MG TAB PO SCH (10:09)
[2017-06-11] MEDS: amLODIPine 5 MG TAB PO SCH ×2 (10:09→11:50)
[2017-06-11] MEDS: ECOTRIN 81 MG TABEC PO SCH (10:09)
[2017-06-11] MEDS: ATORVASTATIN 20 MG TAB PO SCH (10:10)
--- NOTE | 2017-06-11 11:55 | NUR ---
PATIENT IS IN STABLE CONDITION. PATIENT COMPLAINS OF NO CHEST PAIN AT THIS TIME. PATIENT ABLE TO SIGN ALL DOCUMENTS REGARDING DISCHARGE INSTRUCTIONS. PATIENT INFORMED ON FOLLOW UP APPOINTMENT ON WEDNESDAY 06/14. PATIENT UNDERSTOOD ALL INSTRUCTIONS REGARDING PRESCRIPTIONS. PATIENT GATHERED ALL BELONGING AND LEFT THE UNIT VIA WHEELCHAIR.
[2017-06-11 12:00] VITALS: BP 152/71
[2017-06-11] MEDS ORDERED: AMLO10TA PO (13:16)
[2017-06-11] MEDS ORDERED: METO25TA PO (13:16)
[2017-06-11] MEDS ORDERED: OMEP20TC10 PO (13:16)
[2017-06-11] MEDS ORDERED: ATOR40TA PO (13:18)
[2017-06-11] MEDS ORDERED: APR10 PO (13:18)
[2017-06-11] MEDS ORDERED: LOSA50TA39 PO (13:18)
== END 2017-06-11 12:00 | disposition home or self-care (01) | DRG 640 ==
LOC: MED 16:45 → MMU 20:00
PROVIDERS: ADMIT Student in an Organized Health Care Education/Training Program; ATTEND Student in an Organized Health Care Education/Training Program
DX: E87.1 Hypo-osmolality and hyponatremia (principal); G93.41 Metabolic encephalopathy; I42.9 Cardiomyopathy, unspecified; J44.9 Chronic obstructive pulmonary disease, unspecified; I11.9 Hypertensive heart disease without heart failure; F41.9 Anxiety disorder, unspecified; E87.8 Other disorders of electrolyte and fluid balance, not elsewhere classified; K21.9 Gastro-esophageal reflux disease without esophagitis; E78.5 Hyperlipidemia, unspecified; E87.6 Hypokalemia; E89.0 Postprocedural hypothyroidism; F32.9 Major depressive disorder, single episode, unspecified; G47.9 Sleep disorder, unspecified; R73.9 Hyperglycemia, unspecified; R45.1 Restlessness and agitation; E78.00 Pure hypercholesterolemia, unspecified; Z82.49 Family history of ischemic heart disease and other diseases of the circulatory system; Z87.891 Personal history of nicotine dependence; Z83.3 Family history of diabetes mellitus; Z80.8 Family history of malignant neoplasm of other organs or systems
CPT/HCPCS: 36415; 70450; 71045; 80048; 80053; 82150; 83036; 83690; 83735; 83880; 84100; 84436; 84439; 84443; 84479; 84484; 85025; 85610; 85730; 87081; 93005; 93880; 96361; 96374; 99285; J2270; J7030; Q0092

== ENCOUNTER 2017-08-17 12:11 | Inpatient (IN) | payer OTHER ==
[~2017-08-17] VITALS: Ht 170.2 cm; Wt 71.7 kg
[~2017-08-17 12:11] MED LIST changes: -ALBU-136 IH; +AMLO10TA PO; +APR10 PO; -ATEN50TA8 PO; +ATI.5 PO; -ATOR20TA40 PO; +ATOR40TA PO; -FLUT1DSK IH; +MELA5TAB5 PO; +METO25TA PO; -MONT10TA35 PO; +OMEP20TC10 PO; -PHE25S PO; +SERT50TA PO
[2017-08-17 12:13] VITALS: BP 176/90
--- NOTE | 2017-08-17 12:18 | NUR ---
PT AMBULATED TO BED 2.
--- NOTE | 2017-08-17 12:20 | NUR ---
pt ambulated to rm 2 with steady gait
[2017-08-17] MEDS ORDERED: ASPIRIN 81 MG TAB.CHEW PO ONE (12:30)
--- NOTE | 2017-08-17 12:30 | NUR ---
72 YO M BIB self w/ c/o substernal chest pain that began at 0930 this morning. Pt reports that he was resting and didn't go for his walk today and that was why the chest pain began. Pt denies n/v and does not present w/ diaphoresis, but reports the pain extends down left arm. Pt reports numbness/tingling in his fingers of left hand. He reports that walking alleviates the pain. Pt reports that he is having generalized body weakness at this time Pt reports that he has been having "panic attacks" and reports feeling anxiety at this time. Pt requesting anti-anxiety medication. Pt A&O x 4. Denies any respiratory ditress or SOB. No s/s of acute respiratory distress noted at this time. CMS intact. Skin intact. ER MD Yeboah notified of pt complaint og chest pain accompanied by left arm pain, numbness, and tingling. Safety precautions in place. Pt needs met at this time. Will continue to monitor.
[2017-08-17 13:10] LABS: BASOPHILS # (AUTO) 0.6 K/uL (0.00-0.22); EOSINOPHILS # (AUTO) 0.1 K/uL (0-0.4); EOSINOPHILS % (AUTO) 0.5 % (0.0-4.0); HEMATOCRIT 39.3 % (36-52); HEMOGLOBIN 12.9 g/dL (12.0-18.0); LYMPHOCYTES # (AUTO) 1.5 K/uL (2.0-11.5); LYMPHOCYTES % (AUTO) 14.1 % (20.5-51.1); MEAN CORPUSCULAR HEMOGLOBIN 28 pg (27-31); MEAN CORPUSCULAR HGB CONC 33 g/dL (33-37); MEAN CORPUSCULAR VOLUME 84.9 fL (80-94); MONOCYTES % (AUTO) 9.2 % (1.7-9.3); NEUTROPHILS # (AUTO) 7.4 K/uL (1.8-7.7); NEUTROPHILS % (AUTO) 70.2 % (42.2-75.2); PLATELET COUNT (AUTO) 407 K/uL (140-450); RED BLOOD CELL COUNT(AUTO) 4.62 MIL/uL (4.20-6.10); RED CELL DISTRIBUTION WIDTH 13.4 % (11.6-13.7); WHITE BLOOD COUNT (AUTO) 10.6 K/uL (4.8-10.8)
[2017-08-17 13:18] LABS: ANION GAP 13.3 (8-16); CARBON DIOXIDE 28.6 mmol/L (21-32); CREATININE 0.9 mg/dL (0.7-1.3); POTASSIUM 3.9 mmol/L (3.5-5.1)
[2017-08-17 13:23] LABS: ALBUMIN 4.3 g/dL (3.4-5.0); TOTAL BILIRUBIN 0.5 mg/dL (0.0-1.0)
[2017-08-17] MEDS ORDERED: LORazepam 1 MG TAB PO ONE (13:40)
--- NOTE | 2017-08-17 14:07 | NUR ---
pt ambulated with steady gait from and to bathroom without incident. pt returned to [facility]. pt without any complaints. all needs met at this time. will continue to monitor.
[2017-08-17] MEDS ORDERED: ONDANSETRON 4 MG/2 ML VIAL IM/IVP PRN (14:25)
[2017-08-17] MEDS ORDERED: ACETAMINOPHEN 325 MG TAB PO PRN (14:25)
[2017-08-17] MEDS ORDERED: DOCUSATE SODIUM 100 MG GELCAP PO PRN (14:25)
[2017-08-17] MEDS ORDERED: MORPHINE SULFATE 2 MG/ML SYR IVP PRN (14:25)
[2017-08-17] MEDS ORDERED: HYDROcodone/APAP 7.5/325 MG 1 TAB PO PRN (14:25)
[2017-08-17] MEDS ORDERED: NON-FORMULARY ITEM (Melatonin (Melatonin) 1 TAB) PO PRN (14:35)
[2017-08-17 15:03] LABS: PROTHROMBIN TIME 10.2 secs (10.8-13.4)
[2017-08-17 15:18] LABS: CHOL/HDL RATIO 4.6 (1-4.5); FREE T4 (FREE THYROXINE) 1.07 ng/dL (0.76-1.46); MAGNESIUM 1.9 mg/dL (1.8-2.4); PHOSPHORUS 4.1 mg/dL (2.5-4.9); THYROID STIMULATING HORMONE 0.58 uIU/mL (0.34-3.74)
--- NOTE | 2017-08-17 15:25 | NUR ---
Patient will be admitted to care of [facility]. Admited to Tele. Will go to room 118. Belongings list completed. Bedside report to Mari OBANDO.
[2017-08-17] MEDS ORDERED: POLYETHYLENE GLYCOL 17 GM/PKT PO SCH (15:30)
[2017-08-17 15:55] LABS: APPEARANCE,URINE CLEAR (CLEAR); BILIRUBIN,URINE NEGATIVE (NEGATIVE); BLOOD, URINE NEGATIVE (NEGATIVE); COLOR,URINE YELLOW (YELLOW); LEUKOCYTE ESTERASE ,URINE NEGATIVE (NEGATIVE); NITRITE, URINE NEGATIVE (NEGATIVE); PH,URINE 7.5 (5.0-9.0); UGLUCOSE NEGATIVE (NEGATIVE)
[2017-08-17 16:00] VITALS: BP 155/77
[2017-08-17] MEDS ORDERED: METOPROLOL 25 MG TAB PO SCH (16:00)
[2017-08-17] MEDS ORDERED: LORazepam 0.5 MG TAB PO SCH (16:00)
[2017-08-17] MEDS ORDERED: amLODIPine 5 MG TAB PO SCH (16:00)
[2017-08-17] MEDS ORDERED: ATORVASTATIN 20 MG TAB PO SCH (16:00)
[2017-08-17] MEDS ORDERED: LOSARTAN 50 MG TAB PO SCH (16:00)
--- NOTE | 2017-08-17 16:00 | NUR ---
PT ADMITTED TO [facility]. BEDSIDE REPORT GIVEN BY ER NURSE. PT AMBULATED TO BED WITH STEADY GAIT. PT IS AAOX4. PT'S SON AT BEDSIDE. PT ON RA O2 SAT 97%. PT DENIES CHEST PAIN. ORIENTED PT TO USED OF CALL LIGHT. WILL CONTINUE TO MONITOR.
[2017-08-17] MEDS: NACL 0.9% 1,000 ML IV SCH (16:13)
[2017-08-17] MEDS ORDERED: hydrALAZINE 10 MG TAB PO SCH (17:00)
--- NOTE | 2017-08-17 17:30 | NUR ---
CHECKED ON PT IN ROOM. BP 140/68. ADMINISTERED MEDS ORDERED. PT IN STABLE CONDITION.
[2017-08-17] MEDS: hydrALAZINE 10 MG TAB PO SCH ×2 (17:41→21:31)
--- NOTE | 2017-08-17 19:35 | NUR ---
ENDORSED PT TO PRACTICE OR STUDENT TEACHER NURSE EMILE AT BEDSIDE FOR CONTINUITY OF CARE. PT IN STABLE CONDITION.
--- NOTE | 2017-08-17 19:40 | NUR ---
RECEIVED FROM AM RN IN BED SITTING UP AND WATCHING TV. ABLE TO VERBALIZE SIMPLE NEEDS. CALL LIGHT WITH IN REACH AND BED ALARM ON. ENCOURAGED TO CALL FOR AY HELP HE MAY NEED. TELEMETRY MONITORING. DX. OF CHEST PAIN R/O ACS. IVF SITE TO LEFT FOREARM IN PLACE AND WITH GOOD BLOOD RETURN. TELEMETRY MONITORING. DENIES PAIN AT THIS TIME.
[2017-08-17 20:17] VITALS: BP 135/56
[2017-08-17] MEDS: METOPROLOL 25 MG TAB PO SCH (21:29)
[2017-08-17] MEDS: LOSARTAN 50 MG TAB PO SCH (21:30)
[2017-08-17] MEDS: LORazepam 0.5 MG TAB PO SCH (21:31)
[2017-08-18 00:58] VITALS: BP 131/51
--- NOTE | 2017-08-18 01:23 | NUR ---
CHECKED ON PT. EVERY NOW AND THEN. SLEEPING WELL. CALL LIGHT AT BEDSIDE . A/O X 4. ROM X 4. CLEAR SPEECH. NO SOB. DENIES PAIN. ON CARDIAC TELEMETRY MONITORING.
[2017-08-18 05:32] VITALS: BP 140/65
[2017-08-18] MEDS: NACL 0.9% 1,000 ML IV SCH (06:35)
[2017-08-18] MEDS: LORazepam 0.5 MG TAB PO SCH (06:36)
[2017-08-18 07:29] LABS: ANION GAP 13.8 (8-16); CARBON DIOXIDE 26.2 mmol/L (21-32)
[2017-08-18 07:37] LABS: MAGNESIUM 2.1 mg/dL (1.8-2.4); PHOSPHORUS 3.6 mg/dL (2.5-4.9)
--- NOTE | 2017-08-18 07:37 | NUR ---
SLEPT WELL THIS SHIFT. ENDORSED TO THE NEXT RN FOR CONTINUITY OF CARE. INDEPENDENT. TELEMETRY MONITORING.
--- NOTE | 2017-08-18 07:38 | NUR ---
RECEIVED REPORT FROM WET WASHER MACHINE NURSE EMILE AT BEDSIDE FOR CONTINUITY OF CARE. PT IS AWAKE AND ORIENTEDX4. INTRODUCED SELF AND UPDATED BOARD. PT IS LYING IN BED WATCHING TV. NO SOB. ON RA. IV TO L HAND 22G INTACT WITH NS @60ML/HR. PT COMPLAINED THAT THE ROOM WAS TOO COLD. TURNED OFF A/C IN ROOM. PT DENIES CHEST PAIN. EDUCATED PT ON USE OF CALL LIGHT. VERBALIZED UNDERSTANDING. BED IN LOW POSITION, WHEELS LOCKED, CALL LIGHT WITHIN REACH. WILL CONTINUE TO MONITOR.
[2017-08-18 08:00] VITALS: BP 133/65
[2017-08-18 08:03] LABS: BASOPHILS # (AUTO) 0.4 K/uL (0.00-0.22); BASOPHILS % (AUTO) 4.9 % (0.0-2.0); EOSINOPHILS # (AUTO) 0.1 K/uL (0-0.4); EOSINOPHILS % (AUTO) 1.7 % (0.0-4.0); HEMATOCRIT 40.7 % (36-52); HEMOGLOBIN 13.3 g/dL (12.0-18.0); LYMPHOCYTES # (AUTO) 1.5 K/uL (2.0-11.5); LYMPHOCYTES % (AUTO) 19.3 % (20.5-51.1); MEAN CORPUSCULAR HEMOGLOBIN 28 pg (27-31); MEAN CORPUSCULAR HGB CONC 33 g/dL (33-37); MEAN CORPUSCULAR VOLUME 84.6 fL (80-94); MONOCYTES # (AUTO) 0.9 K/uL (0.8-1.0); MONOCYTES % (AUTO) 11.7 % (1.7-9.3); NEUTROPHILS # (AUTO) 4.9 K/uL (1.8-7.7); NEUTROPHILS % (AUTO) 62.4 % (42.2-75.2); PLATELET COUNT (AUTO) 446 K/uL (140-450); RED BLOOD CELL COUNT(AUTO) 4.81 MIL/uL (4.20-6.10); RED CELL DISTRIBUTION WIDTH 13.3 % (11.6-13.7); WHITE BLOOD COUNT (AUTO) 7.8 K/uL (4.8-10.8)
[2017-08-18] MEDS ORDERED: PANTOPRAZOLE 40 MG TABEC PO SCH (09:00)
[2017-08-18] MEDS ORDERED: SERTRALINE 50 MG TAB PO SCH (09:00)
[2017-08-18] MEDS ORDERED: amLODIPine 5 MG TAB PO SCH (09:00)
[2017-08-18] MEDS ORDERED: ASPIRIN 81 MG TAB.CHEW PO SCH (09:00)
[2017-08-18] MEDS ORDERED: ATORVASTATIN 20 MG TAB PO SCH (09:00)
[2017-08-18] MEDS: hydrALAZINE 10 MG TAB PO SCH (09:00)
[2017-08-18] MEDS: LOSARTAN 50 MG TAB PO SCH (09:23)
[2017-08-18] MEDS: METOPROLOL 25 MG TAB PO SCH (09:26)
--- NOTE | 2017-08-18 09:34 | NUR ---
PT REFUSED TO TAKE HYDRALAZINE PT STATED NIGHTSHIFT NURSE ADMINISTERED IT IN TASSEL SNIPPER. NO RECORDS ON EMAR OF ADMINISTRATION OF AM MED.
[2017-08-18 10:10] LABS: T4 (THYROXINE) 8.6 ug/dL (4.5-12.0)
[2017-08-18 12:00] VITALS: BP 135/66
--- NOTE | 2017-08-18 13:30 | NUR ---
PT RECEIVED DC PAPERWORK. EXPLAINED DC INSTRUCTION, MEDICATION ADMINISTRATION EDUCATION, FOLLOW UP APPT, REFERRAL TO CARDIOLOGY, AN PSYCH. PT VERBALIZED UNDERSTANDING, SIGNED FORMS. DC HIS IV L HAND 22G, CATHETER TIP INTACT. NO BLEEDING NOTED PLACED PRESSURE AND 2X2 GAUZE WITH TAPE.. PT STATED WAITING FOR HIS RIDE.
--- NOTE | 2017-08-18 17:00 | NUR ---
PT DC TO GO HOME, CAME AND PICKED UP PT. REMOVED TELE MONITOR AND ID BANDS, PT LEFT WITH ALL PERSONAL BELONGINGS. PT WALKED OUT OF HERE WITH STEADY GAIT IN STABLE CONDITION.
== END 2017-08-18 17:00 | disposition home or self-care (01) | DRG 206 ==
LOC: MED 12:11 → EDBEDREQTM 14:21 → MTU 14:26
PROVIDERS: ADMIT Family Medicine Sports Medicine; ATTEND Family Medicine Sports Medicine
DX: M94.0 Chondrocostal junction syndrome [Tietze] (principal); I42.9 Cardiomyopathy, unspecified; I11.9 Hypertensive heart disease without heart failure; J44.9 Chronic obstructive pulmonary disease, unspecified; R07.9 Chest pain, unspecified; Z87.891 Personal history of nicotine dependence; K21.9 Gastro-esophageal reflux disease without esophagitis; E89.0 Postprocedural hypothyroidism; Z83.3 Family history of diabetes mellitus; Z80.0 Family history of malignant neoplasm of digestive organs; E78.5 Hyperlipidemia, unspecified; F41.9 Anxiety disorder, unspecified
CPT/HCPCS: 36415; 71045; 80048; 80053; 81003; 82140; 82150; 83036; 83690; 83735; 83880; 84100; 84436; 84439; 84443; 84479; 84484; 85025; 85610; 85730; 87081; 87086; 93005; 93976; 99285; J7030; Q0092

== ENCOUNTER 2017-08-28 11:19 | Inpatient (IN) | payer OTHER ==
[~2017-08-28] VITALS: Ht 170.2 cm; Wt 70.3 kg
[2017-08-28 11:24] VITALS: BP 135/80
--- NOTE | 2017-08-28 11:35 | NUR ---
PT AMBULATES TO CHAIR B
--- NOTE | 2017-08-28 11:45 | NUR ---
PATIENT PRESENTS TO ED WITH C/O DIZZY, NAUSEA, CP, ANXIETY, AFTER WALKING 9X AROUND [facility]; AAO PT ANSWER QUESTIONS APPROPRIATELY. HX; ANXIETY, HTN. RX; ATENOLOL, ATIVAN, AMLOPEDINEDENIES. PATIENT STATES PAIN OF 6/10 AT THIS TIME; VSS; PATIENT POSITIONED FOR COMFORT; ER MD MADE AWARE OF PT STATUS.
--- NOTE | 2017-08-28 12:36 | NUR ---
Patient being evaluated by physician at bedside.
[2017-08-28 13:28] LABS: BASOPHILS # (AUTO) 0.1 K/uL (0.00-0.22); BASOPHILS % (AUTO) 0.8 % (0.0-2.0); EOSINOPHILS # (AUTO) 0.1 K/uL (0-0.4); EOSINOPHILS % (AUTO) 1.3 % (0.0-4.0); HEMATOCRIT 38.5 % (36-52); HEMOGLOBIN 12.9 g/dL (12.0-18.0); LYMPHOCYTES # (AUTO) 2.8 K/uL (2.0-11.5); LYMPHOCYTES % (AUTO) 29.4 % (20.5-51.1); MEAN CORPUSCULAR HEMOGLOBIN 28 pg (27-31); MEAN CORPUSCULAR HGB CONC 34 g/dL (33-37); MEAN CORPUSCULAR VOLUME 83.6 fL (80-94); MONOCYTES # (AUTO) 0.7 K/uL (0.8-1.0); MONOCYTES % (AUTO) 7.3 % (1.7-9.3); NEUTROPHILS # (AUTO) 5.9 K/uL (1.8-7.7); NEUTROPHILS % (AUTO) 61.2 % (42.2-75.2); PLATELET COUNT (AUTO) 430 K/uL (140-450); RED CELL DISTRIBUTION WIDTH 13.8 % (11.6-13.7); WHITE BLOOD COUNT (AUTO) 9.6 K/uL (4.8-10.8)
[2017-08-28 14:23] LABS: ALBUMIN 4.3 g/dL (3.4-5.0); ANION GAP 10.9 (8-16); CARBON DIOXIDE 31.1 mmol/L (21-32); TOTAL BILIRUBIN 0.3 mg/dL (0.0-1.0)
[2017-08-28 14:35] LABS: APPEARANCE,URINE CLEAR (CLEAR); BILIRUBIN,URINE NEGATIVE (NEGATIVE); BLOOD, URINE NEGATIVE (NEGATIVE); LEUKOCYTE ESTERASE ,URINE NEGATIVE (NEGATIVE); NITRITE, URINE NEGATIVE (NEGATIVE); UGLUCOSE NEGATIVE (NEGATIVE)
[2017-08-28] MEDS ORDERED: MECLIZINE 25 MG TAB PO PRN (14:35)
[2017-08-28] MEDS ORDERED: HYDROcodone/APAP 5/325 MG 1 TAB TAB PO PRN (14:35)
[2017-08-28 14:43] LABS: COLOR,URINE STRAW (YELLOW)
[2017-08-28] MEDS ORDERED: NITROGLYCERIN 0.4 MG TAB SL PRN (14:50)
[2017-08-28] MEDS ORDERED: NON-FORMULARY ITEM (Melatonin (Melatonin) 1 TAB) PO PRN (14:55)
[2017-08-28 15:13] LABS: AMYLASE 105 U/L (25-115); LIPASE 197 U/L (73-393)
--- NOTE | 2017-08-28 15:18 | NUR ---
Patient will be admitted to care of DR. JESSICA. Admited to TELE FLOOR. Will go to room 116. Belongings list completed. Report to LA OBANDO.
[2017-08-28 15:25] VITALS: BP 158/72
[2017-08-28 15:53] LABS: BARBITURATE, URINE NEG. ng/ml (NEG <=200); BENZODIAZEPINE, URINE NEG. ng/mL (NEG <=200); CANNABINOID, URINE NEG. ng/mL (NEG <=50); COCAINE, URINE NEG. ng/mL (NEG <=300); OPIATE, URINE NEG. ng/mL (NEG <=2000); PHENCYCLIDINE SCREEN,URINE NEG. ng/mL (NEG <=25)
[2017-08-28] MEDS: hydrALAZINE 10 MG TAB PO SCH ×2 (17:42→20:52)
--- NOTE | 2017-08-28 19:30 | NUR ---
RECEIVED FROM AM RN IN BED SITTING UP WATCHING TV. VERBALIZES WELL. NO COMPLAINTS OF ANY PAIN AT THIS TIME. PT. IS ALERT AND ORIENTED. CALL LIGHT WITH IN REACH. CARE PLANS FOR THE NIGHT DISCUSSED WITH HIM. TELEMETRY MONITORING.
[2017-08-28 20:43] VITALS: BP 131/62
[2017-08-28] MEDS: LOSARTAN 50 MG TAB PO SCH (20:52)
[2017-08-28] MEDS: METOPROLOL 25 MG TAB PO SCH (20:52)
[2017-08-28] MEDS ORDERED: LORazepam 0.5 MG TAB PO SCH (21:00)
[2017-08-29] VITALS: BP 139/65
[2017-08-29] MEDS: ZOLPIDEM 5 MG TAB PO SCH ×2 (02:03→21:18)
--- NOTE | 2017-08-29 02:08 | NUR ---
PT. REQUESTED FOR SLEEPING PILL. INSOMNIA REASON. MEDICATED ORDERED BY RESIDENT MD. STILL AWAKE AT THIS TIME. TELEMETRY MONITORING. CALL LIGHT WITH IN REACH.
[2017-08-29 04:00] VITALS: BP 144/78
--- NOTE | 2017-08-29 06:55 | NUR ---
SLEPT WELL. ABLE TO VERBALIZE NEEDS WELL. CALL LIGHT WITH IN REACH. NO DIZZINESS COMPLAINTS THIS SHIFT.
[2017-08-29 06:58] LABS: BASOPHILS % (AUTO) 0.4 % (0.0-2.0); EOSINOPHILS # (AUTO) 0.3 K/uL (0-0.4); EOSINOPHILS % (AUTO) 3.4 % (0.0-4.0); HEMATOCRIT 37.8 % (36-52); HEMOGLOBIN 12.4 g/dL (12.0-18.0); LYMPHOCYTES # (AUTO) 2.3 K/uL (2.0-11.5); LYMPHOCYTES % (AUTO) 30.5 % (20.5-51.1); MEAN CORPUSCULAR HEMOGLOBIN 28 pg (27-31); MEAN CORPUSCULAR HGB CONC 33 g/dL (33-37); MEAN CORPUSCULAR VOLUME 83.9 fL (80-94); MONOCYTES # (AUTO) 0.7 K/uL (0.8-1.0); NEUTROPHILS # (AUTO) 4.3 K/uL (1.8-7.7); NEUTROPHILS % (AUTO) 56.7 % (42.2-75.2); PLATELET COUNT (AUTO) 412 K/uL (140-450); RED BLOOD CELL COUNT(AUTO) 4.51 MIL/uL (4.20-6.10); RED CELL DISTRIBUTION WIDTH 14.2 % (11.6-13.7); WHITE BLOOD COUNT (AUTO) 7.5 K/uL (4.8-10.8)
[2017-08-29 07:20] LABS: MAGNESIUM 2.3 mg/dL (1.8-2.4); PHOSPHORUS 3.7 mg/dL (2.5-4.9)
[2017-08-29 07:27] LABS: ANION GAP 13.5 (8-16); CARBON DIOXIDE 27.8 mmol/L (21-32); POTASSIUM 4.3 mmol/L (3.5-5.1)
--- NOTE | 2017-08-29 07:35 | NUR ---
PATIENT LYING IN BED COMFORTABLY. NO DISTRESS NOTED. DENIES ANY PAIN AT THIS TIME. RESPIRATIONS EVEN, UNLABORED, ON ROOM AIR. AAOX4, CALM, COOPERATIVE, SKIN COLOR APPROPRIATE TO ETHNICITY, WARM TO TOUCH. IV SITE INTACT, PATENT, ON SALINE LOCK. LUNGS CTA ON ALL LOBES. ABDOMEN SOFT, NON-DISTENDED. PATIENT IS AMBULATORY, SKIN INTACT. REVIEWED PLAN OF CARE WITH PATIENT. PATIENT VERBALIZED UNDERSTANDING. SAFETY MEASURES IN PLACE, CALL LIGHT WITHIN REACH. WILL CONTINUE TO MONITOR.
[2017-08-29 08:00] VITALS: BP 146/63
[2017-08-29] MEDS: hydrALAZINE 10 MG TAB PO SCH ×4 (09:00→21:00)
[2017-08-29] MEDS ORDERED: NON-FORMULARY ITEM (Omeprazole 20 MG) PO SCH (09:00)
[2017-08-29] MEDS: DOCUSATE SODIUM 100 MG GELCAP PO SCH (09:00)
[2017-08-29] MEDS: PANTOPRAZOLE 40 MG TABEC PO SCH (10:03)
[2017-08-29] MEDS: amLODIPine 5 MG TAB PO SCH (10:04)
[2017-08-29] MEDS: ASPIRIN 81 MG TAB.CHEW PO SCH (10:04)
[2017-08-29] MEDS: ATORVASTATIN 20 MG TAB PO SCH (10:04)
[2017-08-29] MEDS: LOSARTAN 50 MG TAB PO SCH ×2 (10:05→21:18)
[2017-08-29] MEDS: SERTRALINE 50 MG TAB PO SCH (10:06)
[2017-08-29] MEDS: METOPROLOL 25 MG TAB PO SCH ×2 (10:06→21:18)
--- NOTE | 2017-08-29 10:08 | NUR ---
PATIENT SITTING IN BED WATCHING TV. NO DISTRESS NOTED. DENIES ANY PAIN. SCHEDULED MEDICATIONS DUE GIVEN. HYDRALAZINE WITHHELD BECAUSE DON'T WANT TO DECREASE BLOOD PRESSURE TOO MUCH WITH 3 OTHER SCHEDULED BP MEDS AT THIS TIME. SAFETY MEASURES IN PLACE, CALL LIGHT WITHIN REACH. WILL CONTINUE TO MONITOR.
--- NOTE | 2017-08-29 10:32 | NUR ---
PATIENT HAS BEEN SCREENED AND CATEGORIZED MODERATE NUTRITION RISK. PATIENT WILL BE SEEN WITHIN 3-5 DAYS OF ADMISSION. 08/31/17 - 09/02/[address]
--- NOTE | 2017-08-29 11:30 | NUR ---
PATIENT WALKING AROUND IN [facility]. NO DISTRESS NOTED. WILL CONTINUE TO MONITOR.
[2017-08-29 12:00] VITALS: BP 126/72
[2017-08-29] MEDS: ACETAMINOPHEN 325 MG TAB PO PRN (13:04)
--- NOTE | 2017-08-29 14:00 | NUR ---
PHYSICAL THERAPISTS AT BEDSIDE WORKING WITH PATIENT. WILL CONTINUE TO MONITOR.
--- NOTE | 2017-08-29 15:33 | NUR ---
PATIENT SITTING IN BED. REPORTS FEELING ANXIOUS AND UNEASY. V/S CHECKED, BP IS ELEVATED, WILL GIVE MEDICATION DUE AT 1700. WILL NOTIFY MD FOR POSSIBLE ANXIETY MEDICATION. WILL CONTINUE TO MONITOR.
[2017-08-29 16:00] VITALS: BP 159/68
[2017-08-29] MEDS ORDERED: LORazepam 0.5 MG TAB PO SCH (16:15)
--- NOTE | 2017-08-29 16:33 | NUR ---
PATIENT SITTING IN BED FEELING ANXIOUS, ATIVAN GIVEN PER MD ORDERS. HYDRALZAZINE ALSO GIVEN PER SCHEDULED DUE TO HIGH BP. SAFETY MEASURES IN PLACE, CALL LIGHT WITHIN REACH. WILL CONTINUE TO MONITOR.
--- NOTE | 2017-08-29 18:30 | NUR ---
PATIENT SITTING IN BED TALKING WITH PSYCH CONSULT. WILL CONTINUE TO MONITOR.
--- NOTE | 2017-08-29 19:27 | NUR ---
GAVE REPORT TO WOOL HAT HYDRAULICKER NURSE FOR CONTINUITY OF CARE. PATIENT IN STABLE CONDITION.
--- NOTE | 2017-08-29 19:30 | NUR ---
RECEIVED PATIENT SITTING IN THE OF THE BED. AAOX4, AMBULATORY AND CALL LIGHTS WITHIN REACH. DISCUSS THE PLAN OF CARE. CRYSTAL;L CONTINUE TO MONITOR.
[2017-08-29 20:00] VITALS: BP 149/67
--- NOTE | 2017-08-29 21:15 | NUR ---
SEEN PATIENT ASLEEP IN BED BUT EASILY AROUSABLE. BED IN LOW POSITION WITH CALL LIGHTS WITHIN REACH. NO S/S OF DISTRESS AT THIS TIME. WILL CONTINUE TO MONITOR.
--- NOTE | 2017-08-29 23:30 | NUR ---
SEEN PATIENT ASLEEP. CALL LIGHT WITHIN REACH. WILL CONTINUE TO MONITOR.
[2017-08-30] VITALS: BP 149/66
--- NOTE | 2017-08-30 01:34 | NUR ---
PATIENT ASLEEP IN COMFORTABLE POSITION BUT EASILY AROUSABLE.. CALL LIGHTS WITHIN REACH. BED IN LOW POSITION.
--- NOTE | 2017-08-30 03:06 | NUR ---
SEEN PATIENT ASLEEP IN COMFORTABLE POSITION BUT EASILY AROUSABLE.CALL LIGHT WITHIN REACH. BED IN LOW POSITION .
[2017-08-30 04:00] VITALS: BP 142/74
--- NOTE | 2017-08-30 05:45 | NUR ---
SEEN PATIENT ASLEEP IN BED. CALL LIGHT WITHIN REACH . WILL CONTINUE TO MONITOR.
--- NOTE | 2017-08-30 07:10 | NUR ---
ENDORSED PATIENT TO AM SHIFT NURSE FOR CONTINUITY OF CARE. PATIENT IN STABLE CONDITION.
--- NOTE | 2017-08-30 07:11 | NUR ---
RECEIVED REPORT FROM PLATING FOREMAN NURSE. PATIENT STANDING UP AT BEDSIDE WATCHING TV. NO DISTRESS NOTED. DENIES ANY PAIN AT THIS TIME. AAOX3, CALM, COOPERATIVE, FORGETFUL. RESPIRATIONS EVEN, UNLABORED, ON ROOM AIR. SKIN COLOR APPROPRIATE TO ETHNICITY, WARM TO TOUCH. SKIN IS INTACT. LUNGS CTA ON ALL LOBES. ABDOMEN SOFT, NON-DISTENDED. REVIEWED PLAN OF CARE WITH PATIENT. IV SITE INTACT, PATENT, ON SALINE LOCK. PATIENT VERBALIZED UNDERSTANDING. SAFETY MEASURES IN PLACE, CALL LIGHT WITHIN REACH. WILL CONTINUE TO MONITOR.
[2017-08-30 08:00] VITALS: BP 160/76
[2017-08-30] MEDS: amLODIPine 5 MG TAB PO SCH (08:31)
[2017-08-30] MEDS: PANTOPRAZOLE 40 MG TABEC PO SCH (08:31)
[2017-08-30] MEDS: METOPROLOL 25 MG TAB PO SCH (08:31)
[2017-08-30] MEDS: ACETAMINOPHEN 325 MG TAB PO PRN ×3 (08:32→18:07)
[2017-08-30] MEDS: ATORVASTATIN 20 MG TAB PO SCH (08:32)
[2017-08-30] MEDS: ASPIRIN 81 MG TAB.CHEW PO SCH (08:32)
[2017-08-30] MEDS: LOSARTAN 50 MG TAB PO SCH (08:32)
[2017-08-30] MEDS: SERTRALINE 50 MG TAB PO SCH (08:32)
[2017-08-30] MEDS: DOCUSATE SODIUM 100 MG GELCAP PO SCH (08:33)
[2017-08-30] MEDS: hydrALAZINE 10 MG TAB PO SCH ×3 (08:33→17:46)
--- NOTE | 2017-08-30 08:35 | NUR ---
PATIENT SITTING IN BED WATCHING TV. REPORTS HAVING A HEADACHE, TYLENOL GIVEN. OTHER SCHEDULED MEDICATIONS GIVEN. SAFETY MEASURES IN PLACE, CALL LIGHT WITHIN REACH. WILL CONTINUE TO MONITOR.
--- NOTE | 2017-08-30 10:30 | NUR ---
PATIENT LYING IN BED SLEEPING, AROUSABLE BY VOICE. NO DISTRESS NOTED. DENIES ANY PAIN AT THIS TIME. SAFETY MEASURES IN PLACE, CALL LIGHT WITHIN REACH. WILL CONTINUE OT MONITOR.
[2017-08-30 12:00] VITALS: BP 146/63
--- NOTE | 2017-08-30 13:12 | NUR ---
PATIENT SITTING IN BED WATCHING TV. NO DISTRESS NOTED. COMPLAINTS OF MILD HEADACHE, BUT REFUSED TYLENOL AT THIS TIME. SCHEDULED BP MEDICATIONS DUE GIVEN. SAFETY MEASURES IN PLACE, CALL LIGHT WITHIN REACH. WILL CONTINUE TO MONITOR.
--- NOTE | 2017-08-30 13:58 | NUR ---
PATIENT COMPLAINS OF A MILD HEADACHE, TYLENOL GIVEN. WILL CONTINUE TO MONITOR
[2017-08-30 16:00] VITALS: BP 150/66
--- NOTE | 2017-08-30 17:00 | NUR ---
PATIENT'S AT BEDSIDE. DISCHARGE INSTRUCTIONS GIVEN IN PREFERRED LANGUAGE OF [place], FOLLOW-UP VISITS WITH MD, NEW/CHANGED MEDICATIONS REGIMEN, DIET REGIMEN, AND TECHNIQUES TO CONTROL ANXIETY. TO TAKE PATIENT HOME AROUND 1999 WHEN HER SHIFT ENDS AT WORK. ALL BELONGINGS WITH PATIENT. AWAITING FOR TO TAKE PATIENT HOME.
--- NOTE | 2017-08-30 17:47 | NUR ---
PATIENT SITTING IN BED WATCHING TV. NO DISTRESS NOTED. COMPLAINTS OF HEADACHE, TYLENOL GIVEN. SCHEDULED MEDICATIONS DUE GIVEN. SAFETY MEASURES IN PLACE, CALL LIGHT WITHIN REACH.
--- NOTE | 2017-08-30 18:28 | NUR ---
PATIENT SITTING IN BED WITH DINNER TRAY IN FRONT. NO DISTRESS NOTED. COMPLAINTS OF A MILD HEADACHE, TYLENOL GIVEN. SAFETY MEASURES IN PLACE, CALL LIGHT WITHIN REACH. WILL CONTINUE TO MONITOR.
--- NOTE | 2017-08-30 19:33 | NUR ---
GAVE REPORT TO MEASUREMENT SUPERVISOR NURSE FOR CONTINUITY OF CARE. PATIENT IN STABLE CONDITION.
--- NOTE | 2017-08-30 19:34 | NUR ---
RECEIVED PATIENT SITTING IN THE BED. RECEIVED REPORT FROM AM NURSE THAT PATIENT WILL BE DISCHARGE TONIGHT .CALL LIGHTS WITHIN REACH. BED IN LOW POSITION.
--- NOTE | 2017-08-30 21:00 | NUR ---
PATIENT WENT HOME VIA WHEELCHAIR ACCOMPANIED BY WITH BELONGINGS AND PAPER WORKS GIVEN TO HER . PATIENT LEFT IN STABLE CONDITION.
== END 2017-08-30 21:00 | disposition home or self-care (01) | DRG 74 ==
LOC: MED 11:19 → MTU 14:41
PROVIDERS: ADMIT Family Medicine Sports Medicine; ATTEND Family Medicine Sports Medicine
DX: G90.9 Disorder of the autonomic nervous system, unspecified (principal); E87.1 Hypo-osmolality and hyponatremia; J44.9 Chronic obstructive pulmonary disease, unspecified; E87.8 Other disorders of electrolyte and fluid balance, not elsewhere classified; F41.1 Generalized anxiety disorder; K21.9 Gastro-esophageal reflux disease without esophagitis; I10 Essential (primary) hypertension; E78.5 Hyperlipidemia, unspecified; I49.9 Cardiac arrhythmia, unspecified; I49.3 Ventricular premature depolarization; Z83.3 Family history of diabetes mellitus; Z80.0 Family history of malignant neoplasm of digestive organs; Z87.891 Personal history of nicotine dependence
CPT/HCPCS: 36415; 70450; 71045; 80048; 80053; 80305; 81003; 82140; 82150; 82550; 83690; 83735; 83880; 84100; 84484; 85025; 85610; 85730; 93005; 97140; 99285

== ENCOUNTER 2017-09-13 06:58 | Outpatient (CLI) | payer OTHER ==
[2017-09-13 07:47] LABS: BASOPHILS % (AUTO) 0.7 % (0.0-2.0); EOSINOPHILS # (AUTO) 0.2 K/uL (0-0.4); EOSINOPHILS % (AUTO) 3.1 % (0.0-4.0); HEMATOCRIT 35.5 % (36-52); HEMOGLOBIN 11.7 g/dL (12.0-18.0); LYMPHOCYTES # (AUTO) 1.8 K/uL (2.0-11.5); LYMPHOCYTES % (AUTO) 30.6 % (20.5-51.1); MEAN CORPUSCULAR HEMOGLOBIN 27 pg (27-31); MEAN CORPUSCULAR HGB CONC 33 g/dL (33-37); MEAN CORPUSCULAR VOLUME 83.4 fL (80-94); MONOCYTES # (AUTO) 0.5 K/uL (0.8-1.0); MONOCYTES % (AUTO) 8.1 % (1.7-9.3); NEUTROPHILS # (AUTO) 3.4 K/uL (1.8-7.7); NEUTROPHILS % (AUTO) 57.5 % (42.2-75.2); PLATELET COUNT (AUTO) 393 K/uL (140-450); RED BLOOD CELL COUNT(AUTO) 4.26 MIL/uL (4.20-6.10); RED CELL DISTRIBUTION WIDTH 14.3 % (11.6-13.7)
[2017-09-13 08:30] LABS: ALBUMIN 3.8 g/dL (3.4-5.0); ANION GAP 11.7 (8-16); CARBON DIOXIDE 26.5 mmol/L (21-32); CHOL/HDL RATIO 3.6 (1-4.5); CREATININE 0.9 mg/dL (0.7-1.3); PHOSPHORUS 4.1 mg/dL (2.5-4.9); POTASSIUM 4.2 mmol/L (3.5-5.1); THYROID STIMULATING HORMONE 0.77 uIU/mL (0.34-3.74); TOTAL BILIRUBIN 0.2 mg/dL (0.0-1.0)
[2017-09-13 10:02] LABS: URIC ACID 3.9 mg/dL (2.6-7.2)
== END 2017-09-13 20:27 | disposition home or self-care (01) ==
LOC: MLB 06:58
PROVIDERS: ATTEND Family Medicine
DX: E78.5 Hyperlipidemia, unspecified (principal); E78.00 Pure hypercholesterolemia, unspecified; I10 Essential (primary) hypertension; F41.9 Anxiety disorder, unspecified
CPT/HCPCS: 36415; 80053; 83036; 84100; 84153; 84436; 84439; 84443; 84479; 84550; 85025; 85651; 86038; 86140; 86430

== ENCOUNTER 2018-03-30 07:47 | Outpatient (CLI) | payer OTHER ==
[~2018-03-30 07:47] MED LIST changes: +LOSA50TA27 PO; -LOSA50TA39 PO
[2018-03-30 09:16] LABS: BASOPHILS % (AUTO) 0.6 % (0.0-2.0); EOSINOPHILS # (AUTO) 0.3 K/uL (0-0.4); EOSINOPHILS % (AUTO) 5.8 % (0.0-4.0); HEMATOCRIT 40.1 % (36-52); LYMPHOCYTES # (AUTO) 2.1 K/uL (2.0-11.5); MEAN CORPUSCULAR HEMOGLOBIN 27 pg (27-31); MEAN CORPUSCULAR HGB CONC 32 g/dL (33-37); MONOCYTES # (AUTO) 0.4 K/uL (0.8-1.0); MONOCYTES % (AUTO) 7.1 % (1.7-9.3); NEUTROPHILS % (AUTO) 50.5 % (42.2-75.2); PLATELET COUNT (AUTO) 351 K/uL (140-450); RED BLOOD CELL COUNT(AUTO) 4.77 MIL/uL (4.20-6.10); RED CELL DISTRIBUTION WIDTH 14.8 % (11.6-13.7); WHITE BLOOD COUNT (AUTO) 5.9 K/uL (4.8-10.8)
[2018-03-30 09:39] LABS: ALBUMIN 4.1 g/dL (3.4-5.0); ANION GAP 9.8 (8-16); CARBON DIOXIDE 31.4 mmol/L (21-32); CHOL/HDL RATIO 4.9 (1-4.5); CREATININE 1.2 mg/dL (0.7-1.3); POTASSIUM 4.2 mmol/L (3.5-5.1); THYROID STIMULATING HORMONE 0.61 uIU/mL (0.34-3.74); TOTAL BILIRUBIN 0.3 mg/dL (0.0-1.0)
== END 2018-03-30 22:14 | disposition home or self-care (01) ==
LOC: MLB 07:47
PROVIDERS: ATTEND Internal Medicine Geriatric Medicine
DX: E55.9 Vitamin D deficiency, unspecified (principal); E78.5 Hyperlipidemia, unspecified; R73.03 Prediabetes; I10 Essential (primary) hypertension
CPT/HCPCS: 36415; 80053; 82306; 83036; 84443; 85025; 86140; 86304

== ENCOUNTER → 2018-05-25 | Outpatient (CLI) | payer OTHER ==
[~2018-05-25] MED LIST changes: -LOSA50TA27 PO; +LOSA50TA66 PO
[2018-05-25 08:39] LABS: BASOPHILS # (AUTO) 0.1 K/uL (0.00-0.22); BASOPHILS % (AUTO) 1.1 % (0.0-2.0); EOSINOPHILS # (AUTO) 0.3 K/uL (0-0.4); EOSINOPHILS % (AUTO) 4.2 % (0.0-4.0); HEMATOCRIT 39.1 % (36-52); HEMOGLOBIN 12.7 g/dL (12.0-18.0); LYMPHOCYTES # (AUTO) 2.2 K/uL (2.0-11.5); LYMPHOCYTES % (AUTO) 28.1 % (20.5-51.1); MEAN CORPUSCULAR HEMOGLOBIN 27 pg (27-31); MEAN CORPUSCULAR HGB CONC 32 g/dL (33-37); MEAN CORPUSCULAR VOLUME 83.8 fL (80-94); MONOCYTES # (AUTO) 0.7 K/uL (0.8-1.0); MONOCYTES % (AUTO) 8.8 % (1.7-9.3); NEUTROPHILS # (AUTO) 4.5 K/uL (1.8-7.7); NEUTROPHILS % (AUTO) 57.8 % (42.2-75.2); PLATELET COUNT (AUTO) 345 K/uL (140-450); RED BLOOD CELL COUNT(AUTO) 4.66 MIL/uL (4.20-6.10); RED CELL DISTRIBUTION WIDTH 13.9 % (11.6-13.7); WHITE BLOOD COUNT (AUTO) 7.8 K/uL (4.8-10.8)
[2018-05-25 09:04] LABS: BILIRUBIN,URINE NEGATIVE (NEGATIVE); BLOOD, URINE NEGATIVE (NEGATIVE); COLOR,URINE YELLOW (YELLOW); LEUKOCYTE ESTERASE ,URINE NEGATIVE (NEGATIVE); NITRITE, URINE NEGATIVE (NEGATIVE); PH,URINE 7.5 (5.0-9.0); UGLUCOSE NEGATIVE (NEGATIVE)
[2018-05-25 09:06] LABS: APPEARANCE,URINE CLEAR (CLEAR)
[2018-05-25 10:19] LABS: ALBUMIN 4.1 g/dL (3.4-5.0); ASPARTATE AMINOTRANSFERASE 21 U/L (15-37); CARBON DIOXIDE 29.3 mmol/L (21-32); CHLORIDE 94 mmol/L (98-107); CHOL/HDL RATIO 4.4 (1-4.5); CREATININE 0.8 mg/dL (0.7-1.3); GLUCOSE 105 mg/dL (74-106); HDL CHOLESTEROL 50 mg/dL (40-60); LDL (CALC) 135 mg/dL (60-100); POTASSIUM 4.3 mmol/L (3.5-5.1); SODIUM SERUM 131 mmol/L (136-145); THYROID STIMULATING HORMONE 0.57 uIU/mL (0.34-3.74); TOTAL BILIRUBIN 0.3 mg/dL (0.0-1.0); TRIGLYCERIDES 175 mg/dL (30-150); UREA NITROGEN, BLOOD 11 mg/dL (7-18)
== END | disposition home or self-care (01) ==
LOC: MLB 07:14
PROVIDERS: ATTEND Internal Medicine Geriatric Medicine
DX: Z00.00 Encounter for general adult medical examination without abnormal findings (principal); R35.1 Nocturia; I10 Essential (primary) hypertension
CPT/HCPCS: 36415; 80053; 81003; 82306; 83036; 84154; 84443; 85025; 86140; 86304

== ENCOUNTER 2020-02-13 11:34 | Emergency (ER) | payer BC, OTHER ==
[~2020-02-13] VITALS: Ht 172.7 cm; Wt 75.7 kg
[~2020-02-13 11:34] MED LIST changes: +ASPI-1822 PO; -ASPI81CT89 PO; -MELA5TAB5 PO; +MELA5TAB6 PO
[2020-02-13 11:39] VITALS: BP 131/58
--- NOTE | 2020-02-13 11:50 | NUR ---
74 YEAR OLD MALE COMPLAINS OF MECHANICAL FALL AND HIT LEFT FOREHEAD AND LEFT KNEE WHILE WALKING AROUND BACKYARD. LEFT FOREHEAD VISIBLY REDDENED WITHOUT ABRASION, LEFT KNEE WITH ABRASION WITH BLEEDING CONTROLLED. PT AOX4, BREATHING EVEN AND UNLABORED, SKIN WARM AND DRY. BED IN LOWEST POSITION, LOCKED, BED RAIL UPX1. PMH - HTN ALLERGIES - NKA
--- NOTE | 2020-02-13 12:34 | NUR ---
ERMD AT BEDSIDE
[2020-02-13 12:43] VITALS: BP 132/75
--- NOTE | 2020-02-13 12:44 | NUR ---
Patient discharged with v/s stable. Written and verbal after care instructions about head injury given and explained. Patient alert, oriented and verbalized understanding of instructions. Ambulatory with steady gait. All questions addressed prior to discharge. ID band removed. Patient advised to follow up with PMD. Rx of ibuprofen given. Patient educated on indication of medication including possible reaction and side effects. Opportunity to ask questions provided and answered.
== END 2020-02-13 12:44 | disposition home or self-care (01) ==
LOC: MED 11:34
DX: S09.90XA Unspecified injury of head, initial encounter (principal); I10 Essential (primary) hypertension; K21.9 Gastro-esophageal reflux disease without esophagitis; J44.9 Chronic obstructive pulmonary disease, unspecified; Z79.899 Other long term (current) drug therapy; W19.XXXA Unspecified fall, initial encounter; Y93.89 Activity, other specified; Y92.89 Other specified places as the place of occurrence of the external cause; Y99.8 Other external cause status
CPT/HCPCS: 99282

== ENCOUNTER 2021-01-12 13:19 | Emergency (ER) | payer BC, SELFPAY ==
[~2021-01-12] VITALS: Ht 170.2 cm; Wt 68.0 kg
[2021-01-12 13:19] VITALS: BP 153/76
--- NOTE | 2021-01-12 13:19 | NUR ---
Patient assisted from BRANID simpson onto bed 02.
--- NOTE | 2021-01-12 13:30 | NUR ---
75 y/o BIBA from home with c/c shortness of breath x 30 minutes prior to arrival. Patient A&Ox4, states he was waiting for food delivery at home and began experiencing SOB, chest pain, and eye pain; patient has eye drainage to Left eye. States symptoms began while at home. Patient presented with wheezes throughout and given 1 breathing tx by EMS with minor relief. Patient baseline 93% on room air prior to treatment. Patient presents to ER with c/o sternal 5/10, sharp/intermittent, non-radiating chest pain. Patient also states shortness of breath at this time. Denies nausea, vomiting, diarrhea, dizziness, headache, fever, chills. Lung sounds wheezes mid and lower lobes. SpO2 95% on room air with good tidal volume; RR even unlabored. Pt placed into a gown and surveillance monitor. Bed locked in lowest position, side rails x 1, call light in reach. PMH: COPD, asthma, HTN, HLD NKA Meds: Unable to obtain
--- NOTE | 2021-01-12 13:50 | NUR ---
EMT at bedside for EKG
--- NOTE | 2021-01-12 14:05 | NUR ---
Dr. Sheffield is evaluating patient at bedside.
--- NOTE | 2021-01-12 14:24 | NUR ---
Water cup provided per request.
--- NOTE | 2021-01-12 14:25 | NUR ---
Patient desaturated to 88-90% on room air; states he feels slightly SOB. Patient placed onto 1L via N/C; SpO2 94% at this time with improvement to symptoms.
--- NOTE | 2021-01-12 14:30 | NUR ---
Fara gtz swab collected, walked to lab and handed to CPT Swapnil
[2021-01-12 15:10] LABS: BASOPHILS % (AUTO) 0.4 % (0.0-2.0); EOSINOPHILS # (AUTO) 0.3 K/uL (0-0.4); EOSINOPHILS % (AUTO) 2.9 % (0.0-4.0); HEMATOCRIT 39.5 % (36-52); HEMOGLOBIN 12.7 g/dL (12.0-18.0); LYMPHOCYTES # (AUTO) 2.3 K/uL (2.0-11.5); LYMPHOCYTES % (AUTO) 22.4 % (20.5-51.1); MEAN CORPUSCULAR HEMOGLOBIN 27 pg (27-31); MEAN CORPUSCULAR HGB CONC 32 g/dL (33-37); MEAN CORPUSCULAR VOLUME 84.3 fL (80-94); MONOCYTES # (AUTO) 0.7 K/uL (0.8-1.0); MONOCYTES % (AUTO) 6.3 % (1.7-9.3); NEUTROPHILS # (AUTO) 7.1 K/uL (1.8-7.7); PLATELET COUNT (AUTO) 375 K/uL (140-450); RED BLOOD CELL COUNT(AUTO) 4.69 MIL/uL (4.20-6.10); RED CELL DISTRIBUTION WIDTH 14.7 % (11.6-13.7); WHITE BLOOD COUNT (AUTO) 10.5 K/uL (4.8-10.8)
[2021-01-12 15:26] LABS: ALBUMIN 4.1 g/dL (3.4-5.0); ANION GAP 9.1 (8-16); ASPARTATE AMINOTRANSFERASE 25 U/L (15-37); CARBON DIOXIDE 31.3 mmol/L (21-32); CHLORIDE 96 mmol/L (98-107); CREATININE 1.1 mg/dL (0.6-1.3); GLUCOSE 114 mg/dL (74-106); POTASSIUM 4.4 mmol/L (3.5-5.1); SODIUM SERUM 132 mmol/L (136-145); TOTAL BILIRUBIN 0.3 mg/dL (0.0-1.0); UREA NITROGEN, BLOOD 13 mg/dL (7-18)
--- NOTE | 2021-01-12 15:27 | NUR ---
Pt presents asleep in high-fowlers position. cardiac monitor technician in place. SpO2 95% on 1L via N/C.
[2021-01-12] MEDS ORDERED: SERT25TA PO (15:28)
[2021-01-12] MEDS ORDERED: LOSA100T1 PO (15:28)
[2021-01-12] MEDS ORDERED: MONT10TA35 PO (15:28)
[2021-01-12] MEDS ORDERED: METO50TE2 PO (15:28)
[2021-01-12] MEDS ORDERED: HYDR-1102 PO (15:28)
[2021-01-12] MEDS ORDERED: ATOR20TA PO (15:28)
[2021-01-12] MEDS ORDERED: MEMA5TAB PO (15:28)
[2021-01-12 15:45] VITALS: BP 139/60
--- NOTE | 2021-01-12 15:45 | NUR ---
Patient discharged with v/s stable. Written and verbal after care instructions given and explained. Patient verbalized understanding and accompanied by . Ambulatory with steady gait. All questions addressed prior to discharge. Advised to follow up with PMD.
== END 2021-01-12 15:45 | disposition home or self-care (01) ==
LOC: MED 13:19
DX: J06.9 Acute upper respiratory infection, unspecified (principal); Z20.822 Contact with and (suspected) exposure to COVID-19; J44.9 Chronic obstructive pulmonary disease, unspecified; I10 Essential (primary) hypertension; K21.9 Gastro-esophageal reflux disease without esophagitis; Z87.891 Personal history of nicotine dependence; Z79.899 Other long term (current) drug therapy
CPT/HCPCS: 36415; 71045; 80053; 83880; 84484; 85025; 93005; 99285